=== PATIENT | male | born 1980 | race Two or more races ===

== ENCOUNTER 2021-06-21 03:14 | Observation (INO) | payer OTHER ==
[2021-06-21 03:45] VITALS: TEMP 98.2; BMI 22.6
[2021-06-21 05:34] LABS: INR 1.24 (0.83-1.09); PROTHROMBIN TIME (PATIENT) 14.5 SEC (9.7-13.0)
[2021-06-21 05:37] LABS: ACTIVATED PTT 31.8 SECONDS (25.2-36.5)
[2021-06-21 05:48] LABS: CHLORIDE 100 mmol/L (98-107); SODIUM 137 mmol/L (136-145)
[2021-06-21 05:50] LABS: CALCIUM 8.9 mg/dL (8.5-10.1)
[2021-06-21 05:51] LABS: ALBUMIN 4.1 g/dl (3.4-5.0); ANION GAP 12 MMOL/L (8-16); BLOOD UREA NITROGEN 6.6 mg/dL (7-18); CO2 25 mmol/L (21-32); GLUCOSE,RANDOM 109 mg/dL (74-106)
[2021-06-21 05:54] LABS: CREATININE 0.6 mg/dL (0.55-1.3); SGOT/AST 181 U/L (15-37); SGPT/ALT 112 U/L (13-61)
[2021-06-21 05:56] LABS: TOT PROT 8.9 g/dl (6.4-8.2)
[2021-06-21 05:57] LABS: ALK PHOS 115 U/L (45-117)
[2021-06-21 06:40] LABS: HEMATOCRIT 42.7 % (35.4-49); HEMOGLOBIN 14.8 GM/dL (11.7-16.9); MCH 32.7 pg (25.7-33.7); MCHC 34.6 g/dl (32.0-35.9); MEAN CELL VOLUME 94.6 fl (80-96); MEAN PLT VOLUME 8.5 fl (7.5-11.1); PLATELET COUNT 121 10^3/uL (134-434); RBC 4.52 M/mm3 (4.00-5.60); RDW 14.1 % (11.9-15.9); WHITE BLOOD COUNT 5.1 K/mm3 (4.0-10.0)
[2021-06-21] MEDS ORDERED: LORazepam 1 MG TABLET PO PRN (10:44)
[2021-06-21] MEDS ORDERED: THIAMINE HCL 100 MG TABLET (FP) PO SCH (11:00)
[2021-06-21] MEDS ORDERED: LORazepam 2 MG TABLET PO SCH (11:00)
[2021-06-21] MEDS ORDERED: LIDOCAINE 5% TOPICAL PATCH TP PRN (11:00)
[2021-06-21] MEDS ORDERED: LORazepam 1 MG TABLET PO SCH (11:20)
[2021-06-21 16:07] VITALS: BP 137/89; PULSE 94
[2021-06-21] MEDS ORDERED: LIDOCAINE PATCH REMOVAL MC SCH (22:00)
[2021-06-22] MEDS ORDERED: FOLIC ACID 1 MG TABLET (FP) PO SCH (10:00)
[2021-06-23] MEDS ORDERED: LORazepam 1 MG TABLET PO SCH (05:00)
[2021-06-24] MEDS ORDERED: LORazepam 0.5 MG TABLET PO PRN
[2021-06-24] MEDS ORDERED: LORazepam 0.5 MG TABLET PO SCH (05:00)
[2021-06-25] MEDS ORDERED: LORazepam 0.5 MG TABLET PO ONE (05:00)
== END 2021-06-21 18:40 | disposition other institution (70) ==
LOC: EDBD → JER 03:14 → JERBED 10:12
PROVIDERS: ADMIT Internal Medicine; ATTEND Internal Medicine
DX: R07.9 Chest pain, unspecified (principal); R39.15 Urgency of urination; R74.01 Elevation of levels of liver transaminase levels; U07.1 COVID-19; F10.99 Alcohol use, unspecified with unspecified alcohol-induced disorder; Z29.9 Encounter for prophylactic measures, unspecified; I10 Essential (primary) hypertension
CPT/HCPCS: 36415; 71046-TC-FY; 71275-TC; 74177-TC; 80053; 82550; 84484; 85027; 85379; 85610; 85730; 93005; 93010; 99285-25; C9803; G0378; Q9967; U0003; U0005